=== PATIENT | female | born 2000 | race Caucasian/White ===

== ENCOUNTER 2021-05-31 09:30 | Emergency (ER) | payer OTHER ==
[2021-05-31 09:35] VITALS: BP 133/64; PULSE 72; TEMP 97.4; BMI 29.2
[2021-05-31] MEDS ORDERED: ACETAMINOPHEN 500 MG TABLET (FP) PO ONE (09:42)
[2021-05-31] MEDS ORDERED: METOCLOPRAMIDE HCL 10 MG TABLET (FP) PO ONE ×2 (09:42→09:47)
[2021-05-31] MEDS ORDERED: ACETAMINOPHEN 325 MG TABLET (FP) ONE (09:47)
== END 2021-05-31 12:00 | disposition home or self-care (01) ==
LOC: FER 09:30
DX: R51.9 Headache, unspecified (principal); M25.511 Pain in right shoulder; R11.0 Nausea; V49.50XA Passenger injured in collision with unspecified motor vehicles in traffic accident, initial encounter
CPT/HCPCS: 73030-TC-RT-FY; 73070-TC-RT-FY; 99284-25